=== PATIENT | female | born 1955 | race Caucasian/White ===

== ENCOUNTER 2018-08-31 06:00 | Day surgery (SDC) | payer OTHER ==
[~2018-08-31 06:00] MED LIST: ATENOLOL50 MG PO; FARXIGA10 MG PO; FORTAMET1000 MG PO; VASOTEC20 M1 PO
== END 2018-08-31 13:00 | disposition home or self-care (01) ==
LOC: CIR.AMB 06:00
DX: M93.1 Kienbock's disease of adults (principal)